=== PATIENT | female | born 1985 | race Caucasian/White ===

== ENCOUNTER 2020-10-13 00:10 | Emergency (ER) | payer OTHER ==
[2020-10-13] MEDS ORDERED: LODINE CAP 300300 MG PO (02:24)
== END 2020-10-13 02:35 | disposition home or self-care (01) ==
LOC: ER1 00:10
DX: S90.32XA Contusion of left foot, initial encounter (principal); Z87.19 Personal history of other diseases of the digestive system; W20.8XXA Other cause of strike by thrown, projected or falling object, initial encounter; Y92.009 Unspecified place in unspecified non-institutional (private) residence as the place of occurrence of the external cause
CPT/HCPCS: 73630; 99283

== ENCOUNTER → 2021-05-25 | Outpatient (CLI) | payer OTHER ==
[~2021-05-25] MED LIST: LODINE CAP 300300 MG PO
== END ==
LOC: NM 05-22 12:56
DX: R10.11 Right upper quadrant pain (principal); R19.7 Diarrhea, unspecified
CPT/HCPCS: 78226; A9537